=== PATIENT | male | born 1975 | race Caucasian/White ===

== ENCOUNTER → 2017-11-07 | Outpatient (CLI) | payer BC ==
--- NOTE | 2017-11-07 07:40 | US ---
EXAMINATION TYPE: US liver DATE OF EXAM: 11/07/2017 COMPARISON: US 2009 CLINICAL HISTORY: R94.5 Elevated liver enzymes. Elevated LFT's EXAM MEASUREMENTS: Liver Length: 21.1 cm Gallbladder Wall: 0.2 cm CBD: 0.4 cm Right Kidney: 10.9 x 4.7 x 5.6 cm Pancreas: wnl, tail obscured by overlying bowel gas Liver: Enlarged, heterogeneous with probable fatty sparing Gallbladder: wnl Evidence for sonographic Leonard's sign: No CBD: wnl Right Kidney: wnl Evaluation for focal masses an liver is suboptimal due to underlying heterogeneity. IMPRESSION: Heterogeneous hyperechoic appearance of liver favors product of diffuse fatty infiltratio n. Underlying hepatocellular disease is not excluded. Imaging guided random biopsy for tissue analysi s can be performed if desired.
== END ==
LOC: RADUSWWP 06:59
PROVIDERS: ATTEND Family Medicine
DX: R94.5 Abnormal results of liver function studies (principal)
CPT/HCPCS: 76705